=== PATIENT | female | born 2000 | race American Indian/Alaskan Native ===

== ENCOUNTER 2019-02-20 11:06 | Emergency (ER) | payer SELFPAY ==
--- NOTE | 2019-02-20 11:16 | Emergency Department Report ---
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 Due to findings the following was ordered: ED Disposition for MSE Condition: Stable
[2019-02-20] MEDS ORDERED: IBUPROFEN PO ONE (13:00)
--- NOTE | 2019-02-20 13:03 | Emergency Department Report ---
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 AMBULATORY NO SWELLING DOES NOT KNOW HOW LARGE BOX WAS DP PLUS 2 NO LACS/ABRASION ED Past Medical Hx - Past Medical History Previous Medical History?: No - Surgical History Past Surgical History?: No - Social History Smoking Status: Current Every Day Smoker Substance Use Type: None - Medications Home Medications: Home Medications Medication Instructions Recorded Confirmed Last Taken Type Ibuprofen [Motrin 800 MG tab] 800 mg PO ONCE 6 Days #15 tablet 02/20/19 Unknown Rx ED Review of Systems ROS: Stated complaint: (L) FOOT Other details as noted in HPI Comment: All other systems reviewed and negative Cardiovascular: denies: palpitations Endocrine: denies: excessive sweating Gastrointestinal: denies: abdominal pain Genitourinary: denies: urgency Musculoskeletal: joint swelling Physical Exam - Physical Exam Vital Signs: Vital Signs 02/20/19 11:07 Temperature 98.1 F Pulse Rate 93 H Respiratory 16 Rate Blood Pressure 142/88 O2 Sat by Pulse 100 Oximetry Physical Exam: - General Limitations: No Limitations General appearance: alert, in no apparent distress. - Head Head exam: Present: atraumatic, normocephalic - Eye Eye exam: Present: normal appearance - ENT ENT exam: Present: mucous membranes moist - Neck Neck exam: Present: normal inspection - Respiratory Respiratory exam: Present: normal lung sounds bilaterally. Absent: respiratory distress - Cardiovascular Cardiovascular Exam: Present: normal rhythm. Absent: systolic murmur, diastolic murmur, rubs, gallop - GI/Abdominal GI/Abdominal exam: Present: soft, normal bowel sounds - Extremities Exam Extremities exam: Present: Left foot pain to palpation, no obvious deformity, no swelling, no redness - Back Exam Back exam: Present: normal inspection - Neurological Exam Neurological exam: Present: alert, oriented X3 - Psychiatric Psychiatric exam: normal affect and mood - Skin Skin exam: Present: warm, dry, intact, normal color. Absent: rash ED Course Vital Signs 02/20/19 11:07 Temperature 98.1 F Pulse Rate 93 H Respiratory 16 Rate Blood Pressure 142/88 O2 Sat by Pulse 100 Oximetry Critical care attestation.: If time is entered above; I have spent that time in minutes in the direct care of this critically ill patient, excluding procedure time. ED Disposition Clinical Impression: Contusion of left foot Qualifiers: Encounter type: initial encounter Qualified Code(s): S90.32XA - Contusion of left foot, initial encounter Disposition: TO HOME OR SELFCARE Is pt being admited?: No Does the pt Need Aspirin: No Condition: Stable Instructions: Foot Contusion (ED) Prescriptions: Ibuprofen [Motrin 800 MG tab] 800 mg PO ONCE 6 Days #15 tablet Referrals: DIANE CUELLO MD [Staff Physician] - 3-5 Days [place] ROJELIO HA MD [Primary Care Provider] - 3-5 Days
--- NOTE | 2019-02-20 13:03 | XRay Report ---
LEFT FOOT, 3 views: History: Pain. The bony architecture is intact. Bony alignment is normal. No soft tissue abnormalities are seen. The joint spaces appear preserved. IMPRESSION: Normal left foot.
[2019-02-20 20:46] VITALS: BP 142/88
== END 2019-02-20 13:16 | disposition home or self-care (01) ==
LOC: ED 11:06
DX: S90.32XA Contusion of left foot, initial encounter (principal); F17.200 Nicotine dependence, unspecified, uncomplicated; W01.198A Fall on same level from slipping, tripping and stumbling with subsequent striking against other object, initial encounter; Y93.89 Activity, other specified; Y92.89 Other specified places as the place of occurrence of the external cause; Y99.8 Other external cause status
CPT/HCPCS: 99283